=== PATIENT | female | born 1970 | race Caucasian/White ===

== ENCOUNTER 2018-08-28 08:00 | Outpatient (RCR) | payer OTHER, SELFPAY ==
--- NOTE | 2018-06-12 14:57 | HP.PTEVAL ---
Patient's Visit Information LUZ MARINA RICK is a 47 year old F referred to Physical Therapy by Ramona Sarah DPM with a diagnosis of ACHILLES TENDONITIS,PROXIMAL NERVE NEURITIS,RADICULOPATHY. Date of Evaluation: 06/12/18 Physical Therapist: Danish Pires PT, Cert MDT, OCS - Visit Plan Frequency: 2x /Week Duration: 4 Weeks Plan: MODALTIES US /ESTIM/CP,MANUAL THERAPY STM/STICK /HAWK- CALF/ACHILLES. STRETCHING ,PROGRESS TO STRENGTHENING ABLE GRADED - Subjective Findings: This 47 y/o female presenst to physical therapy with proximal nerve neuritis/achilles tendonitis/radiculopathy. Symptoms located right side achilles tendon and parathesia foot since Feb after gastri by pass. 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 Patient has difficulty with stairs and housework tasks.When patient ssen DR plan to due nerve study.Patient had x-rays-. Provided heel lift.Patient symptoms affect QOL and function. SOCIAL: . 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 GAIT: mild antalgic gait NEURO: c/o burning -parathesia/tingling lateral dorsal foot light touch diminushed. PALAPTION: tender achilles tendon. AROM: dorsiflexion 10 from 0 degrees ,plantarflexion 65 degree,eversion 10 degrres,inversion 40 degrees. MMT: dorsiflexion 4-/5 pain ,G-S 3+/5 pain with calf raises ,eversion/inversin 4/5. FLEXABILITY: mod tight G-S. PROPRIOCEPTION: impaired. LUMBAR ROM: WNL all planes. REFLEXES 3/3,MYTOMES QUAD/HAMS /HIP 4/5 - Goals Goal 1:: Independant with HEP Goal Time Frame: 4-6 Weeks Goal 2:: Decrease achilles tendon pain by 50% or greater to improve function. Goal Time Frame: 4-6 Weeks Goal 3:: Normalize gait pattern Goal Time Frame: 4-6 Weeks Goal 4:: Increase dorsflexion to 0 degrees to improve function with gait Goal Time Frame: 4-6 Weeks Goal 5:: Patient increase strength ankle 4/5 PF/GS to improve function with gait. Goal Time Frame: 4-6 Weeks Goal 6:: Patient to improve LDFES score by 10 points to improve QOL. Goal Time Frame: 4-6 Weeks - Rehabilitation Potential Physical Therapy Diagnosis: This patient has achiiles tendontis possibe sural nerve neuritis with pain ,decrease strength ,burning/parathesia pain,poor dorsiflexion ,pain with G-S ,thus beinifit from skilled PT Rehabilitation Potential: Good - Anticipated Interventions Patient/Client Instruction: Educate patient on: Condition, Plan of Care For the Purpose of:: To decrease pain, To decrease swelling/inflammation, To improve nutrient delivery to tissue, To increase oxygenation perfusion, To improve muscle performance and motor function, To improve ability to perform ADL's, To increase tolerance to activity/condition/position, To improve performance and independence with ADL's, To improve ability of physical actions for home/community/work/leisure, To improve gait and locomotor functions, To decrease soft tissue restriction, To increase flexibility/ROM, To improve ability to perform tasks related to life management Therapeutic Exercise to Include: Strength training, Balance training, Flexibilty training, Passive ROM, Active ROM For the Purpose of:: To decrease pain, To decrease swelling/inflammation, To increase ROM, To improve nutrient delivery to tissue, To increase oxygenation perfusion, To improve muscle performance and motor function, To increase tolerance to activity/condition/position, To improve ability of physical actions for home/community/work/leisure, To improve health of tissue, To decrease soft tissue restriction, To increase flexibility/ROM, To improve ability to perform tasks related to life management Manual Therapy Techniques to Include: Mobilization, Soft tissue mobilization Comment: CALF/HAWK For the Purpose of:: To decrease pain, To decrease swelling/inflammation, To increase ROM, To improve health of tissue, To decrease soft tissue restriction, To increase flexibility/ROM TENS: Yes IF ES: Yes Cryotherapy (ice pack, ice massage): Yes Thermo therapy (hot pack): Yes Ultrasound (thermal/non thermal): Yes For the Purpose of:: To decrease pain, To improve nutrient delivery to tissue, To increase oxygenation perfusion, To improve health of tissue, To decrease soft tissue restriction, To increase flexibility/ROM Thank you for the opportunity to evaluate your patient. For Medicare and Medicare HMO plans, please review the plan of care and approve it. It will need to be FAXED BACK to us at [phone] for Medicare purposes. For Medicare only, by signing this I certify the plan of care. Please let me know if there are questions or concerns regarding this plan of care. Physician Signature: Date:
--- NOTE | 2018-10-18 15:45 | HP.PTDCSUM ---
HP - PT D/C Summary It has been my pleasure to treat LUZ MARINA RICK under orders from Ramona Sarah DPM, for the diagnosis of ACHILLES TENDONITIS,PROXIMAL NERVE NEURITIS,RADICULOPATHY for a total of 22 visit(s). Discharge Date: 08/28/18 Please see the following information for a summary of their discharge status. - Subjective Subjective: Patient plans to see DR simon. Patient stated doing alot better. Walked about 1 mile yesterday - Pain Right Foot Pain Intensity (Out of 10): 1 - Overall Improvement % Improvement: 80 - Objective Objective/Function: GAIT: ambulated reciprocal pattern. AROM: ANKLE DF 3 degrees,otherwise WFL. MMT: quads/hams/hip/ankle 4/5. LUMBAR ROM: WFL all planes - Goals Goal 1:: Independant with HEP Goal Progress: Goal Met Goal 2:: Decrease achilles tendon pain by 50% or greater to improve function. Goal Progress: Goal Met Goal 3:: Normalize gait pattern Goal Progress: Goal Met Goal 4:: Increase dorsflexion to 0 degrees to improve function with gait Goal Progress: Goal Met Goal 5:: Patient increase strength ankle 4/5 PF/GS to improve function with gait. Goal Progress: Goal Met Goal 6:: Patient to improve LDFES score by 10 points to improve QOL. Goal Progress: Goal Met - Plan Plan: RTD - D/C Information Discharge Comments: HEP M,RTD If there are questions or concerns regarding this patient's physical therapy, please feel free to call me at [phone]. Thank you for the referral of this patient. Sincerely, Danish Pires, PT, Cert MDT, OCS
== END 2018-08-28 19:00 | disposition home or self-care (01) ==
LOC: PT 08:00
PROVIDERS: Family Provider Student in an Organized Health Care Education/Training Program; PCP Student in an Organized Health Care Education/Training Program; Referring Provider Podiatrist; Visit Provider Podiatrist
DX: M54.10 Radiculopathy, site unspecified (principal); M76.61 Achilles tendinitis, right leg
CPT/HCPCS: 97014; 97035; 97110; 97140; 97161; 97530; G0283